=== PATIENT | male | born 1965 | race Caucasian/White ===

== ENCOUNTER 2024-10-13 06:23 | Day surgery (SDC) | payer OTHER, SELFPAY | END 2024-10-13 10:32 | disposition home or self-care (01) | LOC: GI 06:23 | PROVIDERS: ATTENDING PHYSICIAN Internal Medicine Gastroenterology | DX: Z12.11 Encounter for screening for malignant neoplasm of colon (principal); K64.8 Other hemorrhoids; K57.30 Diverticulosis of large intestine without perforation or abscess without bleeding; R12 Heartburn; K31.7 Polyp of stomach and duodenum; K31.89 Other diseases of stomach and duodenum; K20.0 Eosinophilic esophagitis; D12.0 Benign neoplasm of cecum | CPT/HCPCS: 45380; 43239; 88305; 88342 ==